=== PATIENT | male | born 1940 | race Caucasian/White ===

== ENCOUNTER → 2018-02-08 | Outpatient (CLI) | payer MEDICARE ==
[~2018-02-08] MED LIST: ASPI1TAB57 PO; COQ-50CA2 PO; DICL75TA PO; FIBE625T PO; FISH100020 PO; LISI2.5T3 PO; METF500T PO; MULT1TAB PO; OXYC1TAB35 PO; SIMV20TA PO; TERA5CAP3 PO
[2018-02-08 09:21] LABS: BASOPHIL % 0.7 % (0.0-2.0); EOSINOPHIL # 0.3 TH/MM3 (0-0.4); EOSINOPHIL % 3.7 % (0.0-4.0); HEMATOCRIT 38.7 % (39.0-51.0); HEMOGLOBIN 13.2 GM/DL (13.0-17.0); LYMPH % 34.1 % (9.0-44.0); LYMPHOCYTE # 2.5 TH/MM3 (1.0-4.8); MEAN CELL VOLUME 95.4 FL (80.0-100.0); MEAN CORPUSCULAR HEMOGLOBIN 32.5 PG (27.0-34.0); MEAN CORPUSCULAR HGB CONC 34.1 % (32.0-36.0); MEAN PLATELET VOLUME 7.5 FL (7.0-11.0); MONO % 7.7 % (0.0-8.0); MONOCYTE # 0.6 TH/MM3 (0-0.9); NEUT % 53.8 % (16.0-70.0); PLATELET COUNT 200 TH/MM3 (150-450); RED BLOOD COUNT 4.06 MIL/MM3 (4.50-5.90); RED CELL DISTRIBUTION WIDTH 12.2 % (11.6-17.2); WHITE BLOOD COUNT 7.4 TH/MM3 (4.0-11.0)
[2018-02-08 09:42] LABS: ALBUMIN 3.5 GM/DL (3.4-5.0); AST (GOT) 18 U/L (15-37); BICARBONATE 29.3 MEQ/L (21.0-32.0); BLOOD UREA NITROGEN 21 MG/DL (7-18); CHLORIDE 108 MEQ/L (98-107); GLOMERULAR FILTRATION RATE 65 ML/MIN (>89); GLUCOSE,FASTING 108 MG/DL (74-99); SODIUM (NA) 143 MEQ/L (136-145)
[2018-02-08 09:43] LABS: ALT (GPT) 32 U/L (12-78)
[2018-02-08 09:45] LABS: ALKALINE PHOSPHATASE 91 U/L (45-117); TOTAL PROTEIN 6.8 GM/DL (6.4-8.2)
== END ==
LOC: CPRE 08:32
PROVIDERS: ATTEND Orthopaedic Surgery
DX: Z01.812 Encounter for preprocedural laboratory examination (principal); M17.12 Unilateral primary osteoarthritis, left knee; M23.204 Derangement of unspecified medial meniscus due to old tear or injury, left knee; M23.201 Derangement of unspecified lateral meniscus due to old tear or injury, left knee
CPT/HCPCS: 36415; 80053; 85025

== ENCOUNTER → 2018-02-13 | Day surgery (SDC) | payer MEDICARE ==
[~2018-02-13] VITALS: Ht 177.8 cm; Wt 102.0 kg
[~2018-02-13] MED LIST changes: +ACETAMINOPHEN 1000 MG/100 ML 100 ML IV ONE; +ACETAMINOPHEN/HYDROcodone 325 MG/5 MG TAB PO PRN; +CHLORHEXIDINE GLUCONATE 2 % 1 PACK (2 CLOTHS) TOPICAL PRN; +DEXAMETHASONE SOD PHOS 4 MG/ML VIAL IV ONE; +DO NOT ADM ANY ANTICOAGULANT DRUGS PRN; +LACTATED RINGER'S 1000 ML INJ 1,000 ML IV ONE; +LACTATED RINGER'S 1000 ML IV PRN; +LIDOCAINE HCL 1% PF 5 ML SYRINGE OTHER ONE; +METOPROLOL TARTRATE 25 MG TAB PO PRN; +MORPHINE SULFATE 4 MG/ML INJ IV PUSH PRN; +ONDANSETRON HCL 4 MG/2 ML VIAL IV ONE; +ONDANSETRON HCL 4 MG/2 ML VIAL IV PUSH PRN; +POVIDONE IODINE 5% (ANTISEPSIS KIT) 4 APPLICATIONS EACH NARE PRN; +POVIDONE IODINE 7.5% SCRUB 118 ML BOTTLE TOPICAL SCH; +PROPOFOL 200 MG/20 ML AMP IV ONE; +ROPIVACAINE 0.5% PF INJ 30 ML VIAL ONE; +SODIUM CHLORID 0.9% 500 ML IV PRN; +VANCOMYCIN 1000 MG/NS 250 ML (for <70 kg) IV SCH; +ceFAZolin 2 GM PREMIX 50 ML IV SCH
--- NOTE | 2018-02-13 08:29 | MH ---
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 PROPOSED SURGERY: Arthroscopic surgery left knee with partial meniscectomy, debridement and chondroplasty. ALLERGIES: NONE. SOCIAL HISTORY: He is retired. He is a nonsmoker. PAST HISTORY: He has type 2 diabetes and high blood pressure and hypercholesterolemia. MEDICATIONS: 1. Metformin. 2. Lisinopril. 3. Baby aspirin. 4. Simvastatin. PAST SURGICAL HISTORY: Four back surgeries. He suffers from chronic pain and he sees pain management. He had left knee surgery some 30 or 40 years ago which apparently was arthroscopic surgery combined with arthrotomy and it looks like he may have had some partial medial meniscectomy at that time. PRESENT HISTORY: He had sudden onset of left knee pain several weeks ago, specifically 01/11/2018 when he woke up in the morning and could not step on the knee. We treated him with NSAIDS and intra-articular injections, which have not helped him at all. It had been difficult to correlate the extent of his pain with the pathology. X-rays do show some osteoarthritis. MRI scan shows several changes, mainly degenerative tears of the medial and lateral meniscus and some osteoarthritis. We have checked his hip. His hip x-rays are bilaterally symmetrical with mild osteoarthritis, but clinically, the pain is not coming from the left hip. As a last resort, we are resorting to arthroscopic surgery of the left knee to see if we can make his symptoms much improved. The diagnosis, the treatment and the prognosis and the potential risks, hazards, and complications of arthroscopic surgery have been discussed in detail with the patient. He is advised that there is no guarantee that this will relieve all or most of his pain. PHYSICAL EXAMINATION: Reveals that at the preoperative visit, he was actually using a walker and is partial weightbearing. He has mild to moderate swelling of the left knee with no redness and no obvious effusion. He hesitates to extend the last few degrees, but passively he can extend it fully when supine. He complains of a lot of pain on flexion past 80 degrees. No instability. He has palpable pedal pulses and moves his toes well. HEENT: Head is normocephalic. Pupils reactive to light. Face Symmetrical. HEART: Regular rhythm, no murmurs. LUNGS: Clear to auscultation. ABDOMEN: Soft and supple. MD CHAPO Dickerson/ARUN , 08:10 AM , 08:28 AM
--- NOTE | 2018-02-13 11:07 | MP ---
cc: Brigido Reyna MD DATE OF OPERATION: 02/13/2018 PREOPERATIVE DIAGNOSES: 1. Tears, medial and lateral meniscus, left knee. 2. Osteoarthritis, left knee. POSTOPERATIVE DIAGNOSES: 1. Tears, medial and lateral meniscus, left knee. 2. Osteoarthritis, left knee. OPERATIVE PROCEDURE: Arthroscopic surgery, left knee consisting of the followin. Partial medial and lateral meniscectomy. 2. Chondroplasty. SURGEON: Dr. Reyna. ANESTHESIA: General. TECHNIQUE: After induction of general anesthesia, the patient's leg was placed in a leg frederick with a tourniquet underneath over the mid thigh. The left lower extremity thoroughly prepped with alcohol and ChloraPrep and draped in routine fashion. After application of an Esmarch bandage, tourniquet was inflated to 300 mmHg. A cannula was introduced through the inferior lateral portal through a stab incision and the joint insufflated with saline, followed by introduction of an irrigation cannula superomedially. Systematic visualization of the joint was carried out with the arthroscope from the inferior lateral portal. Suprapatellar pouch did not show much synovitis. 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 The trochlear notch of the femur looked satisfactory. The medial joint compartment shows some cobblestone appearance of the weightbearing portion of the medial femoral condyle, but no loose pieces of cartilage. The meniscus looked good, except for the posterior horn where we can see some degenerative tears sticking into the joint. The ACL showed some degenerative changes. The lateral compartment shows actually better articular cartilage on the lateral femoral condyle then medial with minimal chondromalacia. Lateral meniscus shows some degenerative tears at the junction of the mid and posterior 1/3, but actual parrot beak-type tear at the junction of the anterior and mid third fairly significant. The instrumentation portal established medially and then a partial medial meniscectomy of the posterior horn was carried out with the shaver and the ArthroCare. Similarly, the lateral meniscus. The compartments were thoroughly evaluated using probing and suction and examination of the medial and lateral gutters. The suprapatellar pouch was reentered and chondroplasty of the lower pole of the patella was carried out with the ArthroCare system. The joint was thoroughly lavaged and suctioned out and the portals closed with interrupted vertical mattress of 3-0 nylon sutures. Dressing was applied with Xeroform, 4 x 4's, ABD, Sof-Rol and an Varun bandage. The tourniquet was deflated (tourniquet time 27 minutes). The patient transferred to the recovery room in satisfactory condition. The patient tolerated the procedure well. TRANSFUSIONS AND COMPLICATIONS: None. POSTOPERATIVE CONDITION: Satisfactory. PROGNOSIS: Guarded because of his chronic pain issues, some of which could be playing a part with this left knee pain, but we did not see any obvious evidence of synovitis or any infection. Indeed when I put the cannula in, there was no egress of fluid. MD CHAPO Dickerson/ARUN , 10:34 AM , 11:07 AM
[2018-02-13 11:40] VITALS: BP 147/74; PULSE 73; RESP 18; TEMP 97.5; O2SAT 98
== END | disposition home or self-care (01) ==
LOC: HSDC 06:26
PROVIDERS: ATTEND Orthopaedic Surgery
DX: S83.282A Other tear of lateral meniscus, current injury, left knee, initial encounter (principal); S83.242A Other tear of medial meniscus, current injury, left knee, initial encounter; M17.12 Unilateral primary osteoarthritis, left knee; E11.9 Type 2 diabetes mellitus without complications; E78.00 Pure hypercholesterolemia, unspecified; Z79.84 Long term (current) use of oral hypoglycemic drugs
CPT/HCPCS: 01400; 29880; J0131; J0690; J1100; J2270; J2405; J2795; J3010; J3370; J7050; J7120